=== PATIENT | male | born 1960 | race African-American/Black ===

== ENCOUNTER 2018-06-16 10:30 | Day surgery (SDC) | payer OTHER ==
[2018-06-16] MEDS ORDERED: LIDOCAINE 2% 100 MG/5 ML UJET TP ONE (11:41)
[2018-06-16] MEDS ORDERED: MIDAZOLAM 2 MG/2 ML VIAL ONE (11:41)
[2018-06-16] MEDS ORDERED: fentaNYL 0.05 MG/ML VIAL ONE (11:41)
[2018-06-16] MEDS ORDERED: KETOROLAC 30 MG/ML VIAL ONE (11:58)
== END 2018-06-16 12:40 | disposition home or self-care (01) ==
LOC: MDS 10:30 → MMU 10:30 → MDS 12:40
PROVIDERS: ATTEND Internal Medicine Gastroenterology
DX: Z12.11 Encounter for screening for malignant neoplasm of colon (principal); D12.2 Benign neoplasm of ascending colon; K57.30 Diverticulosis of large intestine without perforation or abscess without bleeding; Z79.82 Long term (current) use of aspirin; Z79.899 Other long term (current) drug therapy
CPT/HCPCS: 45385; 88305; J1885; J7120; J2250; J3010